=== PATIENT | female | born 1985 | race American Indian/Alaskan Native ===

== ENCOUNTER 2017-03-19 17:45 | Emergency (ER) | payer OTHER ==
[2017-03-19 17:47] VITALS: BMI 38.4
[2017-03-19 17:58] VITALS: BP 107/69; PULSE 78; RESP 18; TEMP 98; O2SAT 97
--- NOTE | 2017-03-19 18:43 | C.PDOC ---
History Of Present Illness 32 yo female w/PMHx of Right shoulder chronic pain come in for evaluation of Right shoulder pain exacerbation after was lifting heavy boxes at work. Pt sts, " i had a work note from my doctor that place me on light duty. Unfortunately, the note was not taken in consideration at work, and they made me to lift heavy weight ". Pt reports, pain is localized over Right shoulder and worse with Right arm movement, similar sx in past. Otherwise, pt denies known direct trauma ro injury, fever, chills, CP, SOB, dyspnea, diaphoresis, palpitation, denies weakness, sensory or vascular deficits to RUE. Ambulate to ED, not in any apparent distress. Time Seen by Provider: 03/19/17 18:02 Chief Complaint (Nursing): Upper Extremity Problem/Injury History Per: Patient Onset/Duration Of Symptoms: Gradual Current Symptoms Are (Timing): Still Present Past Medical History Reviewed: Historical Data, Nursing Documentation, Vital Signs Vital Signs: Last Vital Signs Temp 98 F 03/19/17 17:55 Pulse 78 03/19/17 17:55 Resp 18 03/19/17 17:55 BP 107/69 03/19/17 17:55 Pulse Ox 97 03/19/17 18:56 - Medical History PMH: Bronchitis Family History: States: Unknown Family Hx - Social History Hx Alcohol Use: Yes Hx Substance Use: No Review Of Systems Except As Marked, All Systems Reviewed And Found Negative. Constitutional: Negative for: Fever, Chills ENT: Negative for: Throat Pain Cardiovascular: Negative for: Chest Pain, Palpitations, Edema, Light Headedness Respiratory: Negative for: Cough, Shortness of Breath, Wheezing Musculoskeletal: Positive for: Shoulder Pain (Right) Neurological: Negative for: Weakness, Numbness, Altered Mental Status, Headache , Dizziness Physical Exam - Physical Exam Appears: Well, Non-toxic, No Acute Distress Skin: Normal Color, Warm, No Rash, No Ecchymosis Neck: No Midline Cervical Tenderness, No Paracervical Tenderness, No Step Off Deformity, Supple Chest: Symmetrical, No Deformity, No Tenderness Cardiovascular: Rhythm Regular Respiratory: No Decreased Breath Sounds, No Accessory Muscle Use, No Stridor, No Wheezing Back: No Vertebral Tenderness Extremity: Normal ROM (RUE), Tenderness (Right shoulder mild tenderness over superior aspect. No palpable deformity, no skin changes.), Capillary Refill ( less than 2sec to RUE), No Deformity, No Swelling Neurological/Psych: Oriented x3, Normal Speech, Normal Motor, Normal Sensation, Normal Reflexes ED Course And Treatment O2 Sat by Pulse Oximetry: 97 Pulse Ox Interpretation: Normal - Other Rad Righgt shoulder X-Ray: Interpreted by Me, Viewed By Me Interpretation: (-) acute fx or dislocation Progress Note: On re-evaluation, pt is afebrile, hemodynamicaly stable. Non- toxic, tolerate PO well in ED. PulseOx 97% RA. RUE: exam c/w shoulder tendonitis. FAROM, no neurovascular deficits. xray review and appears without acute abnoramlities. Pt advised. ref. to f/u with Ortho in 2-3 days for re- eval. Return to ED if any worsening or new changes. Disposition Counseled Patient/Family Regarding: Studies Performed, Diagnosis, Need For Followup, Rx Given - Disposition Referrals: Kendra Sanderson MD [Medical Doctor] - Disposition: HOME/ ROUTINE Disposition Time: 18:41 Condition: STABLE Additional Instructions: Light duty to Right shoulder for 1 week Avoid heavy lifting, Right arm lifting for 1 week take medication as prescribed Follow up with Orthopedist in 2-3 days for re-evaluation. Return to ED if any worsening or new changes. Prescriptions: Ibuprofen [Motrin Tab] 600 mg PO Q6 #20 tab Instructions: Shoulder Sprain (ED) Forms: Work Excuse - Clinical Impression Clinical Impression: Shoulder tendonitis
--- NOTE | 2017-03-19 20:25 | RAD ---
Right shoulder three views History: Pain. Comparison: None available. Findings: Glenohumeral and acromioclavicular joint spaces appear preserved. No evidence of acute displaced fracture or dislocation. Impression: Negative acute. If pain persists, consider MRI.
== END 2017-03-19 18:56 | disposition home or self-care (01) ==
LOC: C.ER 17:45 → EDUNIT# 17:45 → C.ER 18:56
DX: M75.91 Shoulder lesion, unspecified, right shoulder (principal)

== ENCOUNTER 2018-08-30 09:30 | Emergency (ER) | payer MEDICAID, OTHER ==
[2018-08-30 09:30] VITALS: BMI 38.4
[2018-08-30 09:38] VITALS: RESP 18; O2SAT 100
--- NOTE | 2018-08-30 10:20 | C.PDOC ---
History Of Present Illness 33 years old female presents to ED via EMS for complaints of chest tightness and pain that began today at work after she was lifting up a heavy package. Patient also reports experiencing symptoms while taking deep breaths. Denies any medical problems or any other complaints. Patient states she is on control. Time Seen by Provider: 08/30/18 09:40 Chief Complaint (Nursing): Chest Pain History Per: Patient History/Exam Limitations: no limitations Onset/Duration Of Symptoms: Hrs Current Symptoms Are (Timing): Still Present Quality: Tightness, "Pain" Associated Symptoms: denies: Nausea, Dyspnea, Diaphoresis, Syncope Modifying Factors: None Exacerbating Factors: Deep Breathing Alleviating Factors: None Recent travel outside of the [place]: No Past Medical History Reviewed: Historical Data, Nursing Documentation, Vital Signs Vital Signs: Last Vital Signs Temp 98.2 F 08/30/18 09:35 Pulse 71 08/30/18 09:35 Resp 18 08/30/18 09:35 BP 120/76 08/30/18 09:35 Pulse Ox 100 08/30/18 09:35 - Medical History PMH: Bronchitis Family History: States: Unknown Family Hx - Social History Hx Alcohol Use: Yes Hx Substance Use: No - Immunization History Hx Tetanus Toxoid Vaccination: No Hx Influenza Vaccination: No Hx Pneumococcal Vaccination: No Review Of Systems Cardiovascular: Positive for: Chest Pain (And tightness ). Negative for: Palpitations Respiratory: Positive for: Shortness of Breath Gastrointestinal: Negative for: Nausea Musculoskeletal: Positive for: Other (chest pain) Neurological: Negative for: Weakness, Numbness Physical Exam - Physical Exam Appears: Non-toxic, No Acute Distress Skin: Normal Color, Warm, Dry, No Rash Head: Atraumatic, Normacephalic Eye(s): bilateral: Normal Inspection, PERRL, EOMI Oral Mucosa: Moist Neck: Normal ROM, Supple Chest: Symmetrical Cardiovascular: Rhythm Regular, No Murmur Respiratory: Normal Breath Sounds, No Rales, No Rhonchi, No Wheezing Gastrointestinal/Abdominal: Normal Exam, Bowel Sounds (Active ), Soft, No Tenderness, No Guarding, No Rebound Extremity: Normal ROM Extremity: Bilateral: Atraumatic, Normal Color And Temperature, Normal ROM Pulses: Left Radial: Normal, Right Radial: Normal Neurological/Psych: Oriented x3, Normal Speech, Other (No focal deficits ) Gait: Steady ED Course And Treatment - Laboratory Results Result Diagrams: 08/30/18 10:30 08/30/18 10:30 Lab Interpretation: Normal ECG: Interpreted By Me ECG Rhythm: Sinus Rhythm ECG Interpretation: No Acute Changes Rate From EC O2 Sat by Pulse Oximetry: 100 (RA) Pulse Ox Interpretation: Normal - Radiology CXR: Interpreted by Me CXR Interpretation: Yes: No Acute Disease - Other Rad CXR X-Ray: Viewed By Me, Read By Radiologist Interpretation: Date of service: 08/30/2018. HISTORY: SOB. COMPARISON: No prior. TECHNIQUE: Chest PA and lateral. FINDINGS: LUNGS: No active pulmonary disease. PLEURA: No significant pleural effusion identified. No pneumothorax apparent. CARDIOVASCULAR: No aortic atherosclerotic calcification present. Prominent cardiac silhouette. No pulmonary vascular congestion. OSSEOUS STRUCTURES: No significant abnormalities. VISUALIZED UPPER ABDOMEN: Normal. OTHER FINDINGS: None. IMPRESSION: Prominent cardiac silhouette. No pulmonary vascular congestion, infiltrate or pleural effusion bilaterally. Progress Note: Treated with toradol IV. On re-evaluation feeling better, denies chest pain. Discharged in stable condition Reassessment Condition: Improved Medical Decision Making Medical Decision Making: Plan: * Toradol * EKG * Blood work * CXR * D Dimer * Urinalysis. Disposition Counseled Patient/Family Regarding: Studies Performed, Diagnosis, Need For Followup - Disposition Disposition: HOME/ ROUTINE Disposition Time: 11:50 Condition: STABLE Additional Instructions: Follow up with your PMD for further evaluation Motrin as needed for pain Instructions: Costochondritis (DC) Forms: [facility] (Serbian), Work Excuse - POA Present On Arrival: None - Clinical Impression Clinical Impression: Chest pain, Acute chest wall pain - PA / CONTROL OFFICER / Resident Statement MD/DO has reviewed & agrees with the documentation as recorded. - Scribe Statement The provider has reviewed the documentation as recorded by the Jaylaibe Bibi Sharp All medical record entries made by the Jaylaibjuan alberto were at my direction and persona lly dictated by me. I have reviewed the chart and agree that the record accurately reflects my personal performance of the history, physical exam, medical decision making, and the department course for this patient. I have also personally directed, reviewed, and agree with the discharge instructions and disposition.
[2018-08-30 10:37] LABS: BASO # 0.1 K/uL (0.0-0.2); BASO % 0.8 % (0.0-2.0); EOS # 0.1 K/uL (0.0-0.7); EOS % 0.9 % (0.0-4.0); HEMOGLOBIN 12.4 g/dL (11.0-16.0); LYMPH # 2.4 K/uL (1.0-4.3); LYMPH % 36.9 % (20.0-40.0); MEAN CORPUSCULAR HEMOGLOBIN 29.1 pg (27.0-31.0); MEAN CORPUSCULAR HGB CONC 33.9 g/dL (33.0-37.0); MONO # 0.4 K/uL (0.0-0.8); MONO % 5.5 % (0.0-10.0); NEUT # 3.6 K/uL (1.8-7.0); NEUT % 55.9 % (50.0-75.0); NRBC % 0.1 % (0.0-2.0); RBC 4.26 Mil/uL (3.80-5.20); RED CELL DISTRIBUTION WIDTH 13.1 % (11.5-14.5); WHITE BLOOD COUNT 6.5 K/uL (4.8-10.8)
[2018-08-30 10:42] LABS: SQUAMOUS EPITHIAL 7 /hpf (0-5); URINE BACTERIA RARE (<OCC); URINE BILIRUBIN NEGATIVE (NEGATIVE); URINE BLOOD NEGATIVE (NEGATIVE); URINE CLARITY Hazy (Clear); URINE COLOR Yellow (YELLOW); URINE GLUCOSE (UA) NORMAL (Normal); URINE LEUKOCYTE ESTERASE NEG Leu/uL (Negative); URINE PROTEIN NEGATIVE (NEGATIVE); URINE UROBILINOGEN NORMAL mg/dL (0.2-1.0)
[2018-08-30 10:43] LABS: HCG,QUALITATIVE URINE NEGATIVE (NEGATIVE)
[2018-08-30 10:52] LABS: ALB/GLOB RATIO 1.5 (1.0-2.1); ALBUMIN 4.5 g/dL (3.5-5.0); ALT/SGPT 20 U/L (9-52); AST/SGOT 20 U/L (14-36); BLOOD UREA NITROGEN 13 mg/dL (7-17); CALCIUM 9.6 mg/dl (8.6-10.4); GFR NON-AFRICAN AMERICAN > 60
[2018-08-30 11:49] VITALS: BP 102/68; PULSE 60; TEMP 97.9
--- NOTE | 2018-08-30 12:15 | RAD ---
Date of service: 08/30/2018 HISTORY: SOB COMPARISON: No prior. TECHNIQUE: Chest PA and lateral FINDINGS: LUNGS: No active pulmonary disease. PLEURA: No significant pleural effusion identified. No pneumothorax apparent. CARDIOVASCULAR: No aortic atherosclerotic calcification present. Prominent cardiac silhouette. No pulmonary vascular congestion. OSSEOUS STRUCTURES: No significant abnormalities. VISUALIZED UPPER ABDOMEN: Normal. OTHER FINDINGS: None. IMPRESSION: Prominent cardiac silhouette. No pulmonary vascular congestion, infiltrate or pleural effusion bilaterally.
--- NOTE | 2018-09-02 15:31 | CARD ---
APPROVED REPORT Date of service: 08/30/2018 EKG Measurement Heart [id number] <Conclusion> Normal sinus rhythm Nonspecific ST and T wave abnormality Abnormal ECG
== END 2018-08-30 12:08 | disposition home or self-care (01) ==
LOC: C.ER 09:30
DX: R07.89 Other chest pain (principal)
CPT/HCPCS: 71046; 80053; 81001; 84484; 84703; 85025; 85378; 93005; 96374; 99283; J1885

== ENCOUNTER 2019-02-09 16:26 | Emergency (ER) | payer MEDICAID ==
[2019-02-09 17:51] VITALS: BMI 47.2
[2019-02-09 17:58] VITALS: RESP 18
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
[2019-02-09 19:06] LABS: BASO # 0.1 K/uL (0.0-0.2); BASO % 1.1 % (0.0-2.0); EOS # 0.1 K/uL (0.0-0.7); EOS % 1.2 % (0.0-4.0); HEMOGLOBIN 14.7 g/dL (11.0-16.0); LYMPH # 2.2 K/uL (1.0-4.3); LYMPH % 26.6 % (20.0-40.0); MEAN CORPUSCULAR HEMOGLOBIN 29.3 pg (27.0-31.0); MEAN PLATELET VOLUME 10.1 fL (7.2-11.7); MONO # 0.6 K/uL (0.0-0.8); MONO % 7.1 % (0.0-10.0); NEUT # 5.3 K/uL (1.8-7.0); WHITE BLOOD COUNT 8.2 K/uL (4.8-10.8)
[2019-02-09 19:29] LABS: BLOOD UREA NITROGEN 8 mg/dL (7-17); CALCIUM 9.8 mg/dl (8.6-10.4); GFR NON-AFRICAN AMERICAN > 60
[2019-02-09] MEDS ORDERED: Sodium Chloride 0.9% 1,000 ML IV ONE (20:15)
[2019-02-09 20:49] VITALS: BP 111/74; PULSE 66; TEMP 98.4
[2019-02-09 20:56] VITALS: O2SAT 99
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
--- NOTE | 2019-02-10 09:22 | US ---
Date of service: 02/09/2019 PROCEDURE: HISTORY: abscess breast Patient apparently presented to the emergency room on 02/09/2019 at 1923 hr. The case is presented to me the following day for interpretation. I did not have the opportunity to see or examined the patient personally. There is note by the hematology technologist however that the patient has an open wound in the area of the left breast which is of concern to her where a sonographic fluid like collection is present. Which is referenced below. The patient is 33 years of age and has no personal history of breast cancer. There is a family history of breast cancer in a carotid grandmother and cousins; no further details noted COMPARISON: None TECHNIQUE: Real-time scanning the pertinent breast - targeted to the area(s) of interest was performed . Doppler was applied as needed. FINDINGS: 6 o'clock-corresponding to the "palpable" area of concern. A superficial hypoechoic complex fluid like collection measuring 4.3 x 0.4 x 4.4 cm in size is noted. The hematology technologist has noted that there is an open wound in this area. No vascularity within this area noted. There is a vascularity bordering it. No lymphadenopathy demonstrated on this exam. IMPRESSION: Limited exam given the inability to directly visualize the patient-however where patient's apparent obvious clinical wound is there is a superficial collection-compatible with a complex fluid collection with suspect overlying skin thickening here also noted. A superficial abscess is compatible with this. The collection is elongated and parallels the chest wall. Treatment in terms of antibiotic administration choices is not known. Follow-up with patient's physician is advised. Consider consultation/follow up with a breast surgeon if needed. Would also recommend imaging follow-up in 1 month BIRADS 3 Probably Benign Recommendation: Short-interval 1 month follow-up
== END 2019-02-09 22:06 | disposition home or self-care (01) ==
LOC: C.ER 16:26
DX: E11.65 Type 2 diabetes mellitus with hyperglycemia (principal); N61.1 Abscess of the breast and nipple; F17.210 Nicotine dependence, cigarettes, uncomplicated
CPT/HCPCS: 76642; 80048; 81025; 85025; 87070; 96360; 99284; J7030